=== PATIENT | male | born 1990 | race Asian ===

== ENCOUNTER 2017-04-26 15:05 | Observation (INO) | payer OTHER ==
[~2017-04-26] VITALS: Ht 188 cm; Wt 114.0 kg
[2017-04-26] MEDS ORDERED: MECLIZINE HCL 25 MG TAB PO STA (15:34)
[2017-04-26] MEDS ORDERED: SODIUM CHLORIDE 0.9% 1000ML 1,000 ML IV STA ×3 (15:34→18:19)
[2017-04-26 15:58] LABS: BASO % 0.3 %; BASO ABS # 0.03 K/uL (0-0.2); EOS % 2.3 %; HEMATOCRIT 46.7 % (42-52); HEMOGLOBIN 17.5 g/dL (14.0-18.0); IG# 0.02 K/uL (0.00-0.02); LYMPH % 40.6 %; LYMPH ABS # 3.48 K/uL (1.2-3.4); MEAN CELL VOLUME 83.4 fL (80-100); MEAN CORPUSCULAR HEMOGLOBIN 31.3 pg (25-34); MEAN CORPUSCULAR HGB CONC 37.5 g/dl (32-36); MEAN PLATELET VOLUME 12.1 fL (7.4-10.4); MONO % 5.5 %; MONO ABS # 0.47 K/uL (0.11-0.59); NEUT % 51.1 %; NEUT ABS # 4.38 K/uL (1.4-6.5); PLATELET COUNT 234 K/uL (130-400); RED CELL DISTRIBUTION WIDTH CV 12.1 % (11.5-14.5); RED CELL DISTRIBUTION WIDTH SD 36.4 fL (36.4-46.3); WHITE BLOOD COUNT 8.58 K/uL (4.8-10.8)
--- NOTE | 2017-04-26 16:09 | DIAGNOSTIC IMAGING REPORT ---
HEAD WITHOUT CONTRAST (CT) CLINICAL HISTORY: 27 years-old Male presenting with dizzy . TECHNIQUE: Multidetector CT imaging of the head was performed without the use of intravenous contrast. IV contrast: None. A dose lowering technique was used consistent with the principles of ALARA (as low as reasonably achievable). COMPARISON: None. CT DOSE (mGy.cm): The estimated cumulative dose is 614.27 mGy.cm. FINDINGS: Paid Search Manager topogram: Unremarkable. Ventricles and sulci normal in size. Brain parenchyma normal in appearance with preserved chatman-white differentiation. No mass effect or midline shift. No hemorrhage or acute territorial infarct. No extra-axial fluid collection. Paranasal sinuses and mastoid air cells clear. Calvarium intact. IMPRESSION: 1. No acute intracranial abnormality. Electronically signed by: Bhaskar Mark M.D. 04/26/2017 4:08 PM Dictated Date/Time: 04/26/2017 4:06 PM
[2017-04-26] MEDS ORDERED: INSULIN IV INFUSION PROTOCOL STA ×2 (18:12→18:19)
[2017-04-26] MEDS ORDERED: HHS GOAL RANGE 250-350 mg/dl ONE ×2 (18:15→18:30)
[2017-04-26] MEDS ORDERED: MODERATE STRESS LEVEL ONE ×2 (18:15→18:30)
[2017-04-26] MEDS ORDERED: DEXTROSE 50% 50 ML SYR IV PRN (18:30)
[2017-04-26] MEDS ORDERED: NovoLIN R BOLUS FROM BAG IV ONE (18:30)
[2017-04-26] MEDS ORDERED: GLUCAGON FOR INJ 1 MG VIAL SQ PRN (18:30)
[2017-04-26] MEDS ORDERED: ONDANSETRON INJ 2 MG/ML 2 ML VIAL IV PRN (18:30)
[2017-04-26] MEDS ORDERED: ALUMINUM/MAGNESIUM/SIMETH (MAALOX MAX) 30 ML UDC PO PRN (18:30)
[2017-04-26] MEDS ORDERED: ACETAMINOPHEN 325 MG TAB PO PRN (18:30)
[2017-04-26] MEDS ORDERED: MAGNESIUM HYDROXIDE SUSP 30 ML UDC PO PRN (18:30)
[2017-04-26] MEDS ORDERED: GLUCOSE 10 TABS/TUBE PO PRN (18:30)
[2017-04-26] MEDS ORDERED: POLYETHYLENE (MIRALAX) 17 GM PACK PO PRN (18:30)
[2017-04-26] MEDS ORDERED: GLUCOSE 40% GEL 15 GM TUBE PO PRN (18:30)
[2017-04-26] MEDS ORDERED: ZOLPIDEM TARTRATE 5 MG TAB PO PRN (18:30)
[2017-04-26] MEDS ORDERED: INSULIN REGULAR 250 UNITS in SODIUM CHLORIDE 0.9% 250ML 250 ML IV SCH (18:30)
[2017-04-26] MEDS ORDERED: LANTUS PER UNIT CHARGE SC STA (18:31)
--- NOTE | 2017-04-26 18:54 | History and Physical ---
History & Physical Date & Time of Service: Apr 26, 2017 at 18:45 Chief Complaint: Blurred Vision, Dizzy, Muscle Weakness Primary Care Physician: No Doctor, Assigned History of Present Illness Source: patient 27 y/o M who denies any past medical history. The pt over the past 6 weeks has developed polydipsia and polyuria and states that he is drinking 4l water daily. He became lightheaded this AM and presented to the the ER. Initial labs revealed a glucose of 450. He does not have a history of diabetes. No gap was present. He denies abdominal pain, CP, SOB, dysuria or fevers. 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 [employer] Smoking Status: Never Smoker Allergies Coded Allergies: No Known Allergies (Unverified , 04/26/17) Home Medications No Active Prescriptions or Reported Meds Review of Systems Constitutional: + weakness, No fever, No chills, No sweats Eyes: No worsening of vision ENT: No hearing loss, No unusual epistaxis, No nasal symptoms Respiratory: No cough, No sputum, No wheezing Cardiovascular: No chest pain Abdomen: No pain, No nausea, No vomiting Musculoskeletal: No joint pain Genitourinary - Male: + urinary frequency, No hematuria, No dysuria Neurologic: + weakness, + vertigo, No memory loss, No paralysis Psychiatric: No depression symptoms Endocrine: + fatigue, + excessive thirst, + excessive urination Hematologic / Lymphatic: No abnormal bleeding/bruising Integumentary: No rash Physical Exam Vital Signs Date Time Temp Pulse Resp B/P (MAP) Pulse Ox O2 Delivery O2 Flow Rate FiO2 04/26/17 18:00 83 20 142/99 98 Room Air 04/26/17 17:51 99 04/26/17 17:30 93 20 143/102 96 Room Air 04/26/17 17:00 99 20 134/90 95 Room Air 04/26/17 16:30 97 20 157/94 95 Room Air 04/26/17 16:07 101 20 145/105 96 Room Air 04/26/17 15:51 106 04/26/17 15:13 36.7 127 16 154/101 94 Room Air General Appearance: + pertinent finding (Overweight, young male - no distress) Head: normocephalic, atraumatic Eyes: normal inspection ENT: normal ENT inspection, pharynx normal Neck: supple, no JVD Respiratory/Chest: chest non-tender, lungs clear, normal breath sounds Cardiovascular: regular rate, rhythm, no edema, no gallop Abdomen/GI: normal bowel sounds, non tender, soft Back: normal inspection, no CVA tenderness, no muscle spasm, normal range of motion Extremities/Musculoskelatal: normal inspection, no calf tenderness, normal capillary refill, no pedal edema, normal range of motion Neurologic/Psych: frit burner II-XII nml as tested, no motor/sensory deficits, alert, oriented x 3 Skin: normal color Diagnostics Laboratory Results Results Past 24 Hours Test 04/26/17 15:45 04/26/17 17:46 04/26/17 18:29 Range/Units White Blood Count 8.58 4.8-10.8 K/uL Red Blood Count 5.60 4.7-6.1 M/uL Hemoglobin 17.5 14.0-18.0 g/dL Hematocrit 46.7 42-52 % Mean Corpuscular Volume 83.4 80-100 fL Mean Corpuscular Hemoglobin 31.3 25-34 pg Mean Corpuscular Hemoglobin Concent 37.5 32-36 g/dl Platelet Count 234 130-400 K/uL Mean Platelet Volume 12.1 7.4-10.4 fL Neutrophils (%) (Auto) 51.1 % Lymphocytes (%) (Auto) 40.6 % Monocytes (%) (Auto) 5.5 % Eosinophils (%) (Auto) 2.3 % Basophils (%) (Auto) 0.3 % Neutrophils # (Auto) 4.38 1.4-6.5 K/uL Lymphocytes # (Auto) 3.48 1.2-3.4 K/uL Monocytes # (Auto) 0.47 0.11-0.59 K/uL Eosinophils # (Auto) 0.20 0-0.5 K/uL Basophils # (Auto) 0.03 0-0.2 K/uL RDW Standard Deviation 36.4 36.4-46.3 fL RDW Coefficient of Variation 12.1 11.5-14.5 % Immature Granulocyte % (Auto) 0.2 % Immature Granulocyte # (Auto) 0.02 0.00-0.02 K/uL Impression Assessment and Plan 27 y/o M who denies any past medical history. The pt over the past 6 weeks has developed polydipsia and polyuria and states that he is drinking 4l water daily. He became lightheaded this AM and presented to the the ER. Initial labs revealed a glucose of 450. He does not have a history of diabetes. No gap was present. He denies abdominal pain, CP, SOB, dysuria or fevers. The pt is diagnosed with new-onset DM - he does not have a gap although he is considerably hyperglycemic so that insulin may be required going forward. We have place him on a drip with an initial dose of Lantus to transition to a sliding scale. Aggressive IVF and electrolyte replacement will be provided. He will be monitored on telemetry overnight. We have consulted endocrinology and DM education for AM. Full code - Heparin prophylaxis Total time for this admit including review of labs, records - discussion with pt and ER attending - 35 min Level of Care Telemetry Resuscitation Status FULL RESUSCITATION VTE Prophylaxis VTE Risk Assessment Done? Y/N: Yes Risk Level: Low Given or contraindicated: Unfractionated heparin SQ
[2017-04-26] MEDS: INSULIN ASPART 100 UNITS/ML 3 ML PEN SC SCH ×2 (19:00→21:00)
[2017-04-26] MEDS ORDERED: NSS + 20MEQ KCL 1000ML 1,000 ML IV SCH (19:00)
[2017-04-26 19:10] LABS: BLOOD UREA NITROGEN 17 mg/dl (7-18); CREATININE 1.38 mg/dl (0.60-1.40)
[2017-04-26 19:13] LABS: CALCIUM 8.9 mg/dl (8.5-10.1); CARBON DIOXIDE 20 mmol/L (21-32); POTASSIUM 5.9 mmol/L (3.5-5.1); SODIUM 130 mmol/L (136-145)
[2017-04-26 19:19] LABS: GLUCOSE 445 mg/dl (70-99)
[2017-04-26 19:34] VITALS: BP 140/92; PULSE 96; TEMP 37.2; O2SAT 98
[2017-04-26 19:35] VITALS: BMI 32.0
[2017-04-26 20:13] LABS: HEMATOCRIT 45.5 % (42-52); HEMOGLOBIN 17.5 g/dL (14.0-18.0); MEAN CELL VOLUME 85.2 fL (80-100); MEAN CORPUSCULAR HEMOGLOBIN 32.8 pg (25-34); MEAN CORPUSCULAR HGB CONC 38.5 g/dl (32-36); PLATELET COUNT 331 K/uL (130-400); WHITE BLOOD COUNT 9.52 K/uL (4.8-10.8)
[2017-04-26] MEDS ORDERED: IV FLUIDS COMPLETED PRN (20:15)
--- NOTE | 2017-04-26 22:27 | EMERGENCY ROOM VISIT NOTE ---
History Report prepared by Hazel: Mary Vaughn Under the Supervision of: Anita WillisO. First contact with patient: 15:23 Chief Complaint: DIZZY Stated Complaint: BLURRED VISION, DIZZY, MUSCLE WEAKNESS History of Present Illness The patient is a 27 year old male who presents to the Emergency Room with complains of persistent episodes of dizziness that began 2 days ago. The patient states that during his first episode, he fell to the ground noting he felt like the room was spinning. He notes that 2 days ago he began having a dry mouth and yesterday his vision became blurry. The patient states that during his recent episodes, his arms and legs have felt numb bilaterally. He notes that his episodes worsen with movement, but are relieved by laying down. The patient notes a subjective fever. He states that he has similar episodes once a year, but they are not this intense. Over the past 2 months patient has been feeling very weak and tired. He's been drinking about 4 L day and he's been urinating about 10-15 times per day as well. No history of diabetes. Pt denies headache, chest pain, shortness of breath, nausea, vomiting, diarrhea, pain with urination, and melena. Source of History: patient Onset: 2 days ago Position: other (global) Quality: other (dizziness) Timing: other (persistent) Review of Systems See HPI for pertinent positives & negatives. A total of 10 systems reviewed and were otherwise negative. Past Medical & Surgical Medical Problems: (1) Hyperglycemia (2) New onset type 2 diabetes mellitus Family History Patient reports no known family medical history. Social History Smoking Status: Never Smoker Alcohol Use: none Drug Use: none Housing Status: lives alone Occupation Status: student Current/Historical Medications No Active Prescriptions or Reported Meds Allergies Coded Allergies: No Known Allergies (Unverified , 04/26/17) Physical Exam Vital Signs Date Time Temp Pulse Resp B/P (MAP) Pulse Ox O2 Delivery O2 Flow Rate FiO2 04/26/17 18:00 83 20 142/99 98 Room Air 04/26/17 17:51 99 04/26/17 17:30 93 20 143/102 96 Room Air 04/26/17 17:00 99 20 134/90 95 Room Air 04/26/17 16:30 97 20 157/94 95 Room Air 04/26/17 16:07 101 20 145/105 96 Room Air 04/26/17 15:51 106 04/26/17 15:13 36.7 127 16 154/101 94 Room Air Physical Exam GENERAL: Sitting on the edge of the bed, alert, well appearing, well nourished, no distress, non-toxic EYE EXAM: normal conjunctiva. PERRL and EOM's grossly intact. OROPHARYNX: no exudate, no erythema, lips, buccal mucosa, and tongue normal and mucous membranes are dry NECK: supple, no nuchal rigidity, no adenopathy, non-tender LUNGS: Clear to auscultation. Normal chest wall mechanics HEART: Tachycardic, S1 normal and S2 normal ABDOMEN: abdomen soft, non-tender, normo-active bowel sounds, no masses, no rebound or guarding. BACK: Back is symmetrical on inspection and there is no deformity, no midline tenderness, no CVA tenderness. SKIN: no rashes and no bruising UPPER EXTREMITIES: Rapid sudden movements of upper extremities intact. Upper extremities are grossly normal. LOWER EXTREMITIES: No pitting edema. NEURO EXAM: Normal sensorium, cranial nerves II-XII grossly intact, normal speech, no gross weakness of arms, no gross weakness of legs. No drift. Finger to nose intact. Gross sensation intact. Medical Decision & Procedures ER Provider Diagnostic Interpretation: Radiology results as stated below per my review and the radiologist's interpretation: HEAD WITHOUT CONTRAST (CT) CLINICAL HISTORY: 27 years-old Male presenting with dizzy . TECHNIQUE: Multidetector CT imaging of the head was performed without the use of intravenous contrast. IV contrast: None. A dose lowering technique was used consistent with the principles of ALARA (as low as reasonably achievable). COMPARISON: None. CT DOSE (mGy.cm): The estimated cumulative dose is 614.27 mGy.cm. FINDINGS: Lathe Sander topogram: Unremarkable. Ventricles and sulci normal in size. Brain parenchyma normal in appearance with preserved chatman-white differentiation. No mass effect or midline shift. No hemorrhage or acute territorial infarct. No extra-axial fluid collection. Paranasal sinuses and mastoid air cells clear. Calvarium intact. IMPRESSION: 1. No acute intracranial abnormality. Electronically signed by: Bhaskar Mark M.D. 04/26/2017 4:08 PM Dictated Date/Time: 04/26/2017 4:06 PM Laboratory Results Test 04/26/17 15:45 04/26/17 17:46 RDW Standard Deviation 36.4 fL (36.4-46.3) RDW Coefficient of Variation 12.1 % (11.5-14.5) White Blood Count 8.58 K/uL (4.8-10.8) Red Blood Count 5.60 M/uL (4.7-6.1) Hemoglobin 17.5 g/dL (14.0-18.0) Hematocrit 46.7 % (42-52) Mean Corpuscular Volume 83.4 fL (80-100) Mean Corpuscular Hemoglobin 31.3 pg (25-34) Mean Corpuscular Hemoglobin Concent 37.5 g/dl (32-36) Platelet Count 234 K/uL (130-400) Mean Platelet Volume 12.1 fL (7.4-10.4) Neutrophils (%) (Auto) 51.1 % Lymphocytes (%) (Auto) 40.6 % Monocytes (%) (Auto) 5.5 % Eosinophils (%) (Auto) 2.3 % Basophils (%) (Auto) 0.3 % Neutrophils # (Auto) 4.38 K/uL (1.4-6.5) Lymphocytes # (Auto) 3.48 K/uL (1.2-3.4) Monocytes # (Auto) 0.47 K/uL (0.11-0.59) Eosinophils # (Auto) 0.20 K/uL (0-0.5) Basophils # (Auto) 0.03 K/uL (0-0.2) Immature Granulocyte % (Auto) 0.2 % Immature Granulocyte # (Auto) 0.02 K/uL (0.00-0.02) Est Creatinine Clear Calc Drug Dose 106.6 ml/min Troponin I < 0.015 ng/ml (0-0.045) Beta-Hydroxybutyric Acid 33.78 mg/dL (0.2-2.81) Laboratory results per my review. Medications Administered Medications (Trade) Dose Ordered Sig/Kelle Route Start Time Stop Time Status Last Admin Dose Admin Sodium Chloride 1,000 ml @ 999 mls/hr Q1H1M STAT IV 04/26/17 15:34 04/26/17 16:34 DC 04/26/17 15:56 999 MLS/HR Meclizine HCl (Antivert Tab) 25 mg NOW STAT PO 04/26/17 15:34 04/26/17 15:35 DC 04/26/17 15:55 25 MG Sodium Chloride 1,000 ml @ 999 mls/hr Q1H1M STAT IV 04/26/17 17:36 04/26/17 18:36 DC 04/26/17 17:40 999 MLS/HR Insulin Human Regular 250 units/ Sodium Chloride 252.5 ml @ 0 mls/hr 1830 IV 04/26/17 18:30 04/27/17 11:29 04/26/17 18:54 2.8 MLS/HR Insulin Human Regular (NovoLIN R BOLUS FROM BAG) 3 unit ONE ONCE IV 04/26/17 18:30 04/26/17 18:31 DC 04/26/17 18:30 3 UNIT Insulin Glargine (Lantus Per Unit) 20 units 1845 STAT SC 04/26/17 18:31 04/26/17 18:32 DC 04/26/17 19:02 20 UNITS ECG Indication: other (dizziness) Rate (beats per minute): 99 Rhythm: normal sinus Findings: Q waves (Anterior), no ectopy, other (normal axis, normal intervals) ED Course ED COURSE: Vital signs were reviewed and showed tachycardic. The patients medical record was reviewed The above diagnostic studies were performed and reviewed. ED treatments and interventions as stated above. 1533: The patient was evaluated in room C1. A complete history and physical examination was performed. 1534: Ordered Sodium Chloride 1000ml @ 999mls/hr IV and Antivert Tab 25mg PO. 1723: I reevaluated the patient, who states he is feeling better. 1736: Ordered Sodium Chloride 1000ml @ 999mls/hr IV. 1812: Ordered Insulin IV infusion protocol 1ea. 1815: Ordered Insulin protocol moderate stress level 1ea and Insulin protocol Hhs goal range 1ea. 1818: Ordered Insulin IV infusion protocol 1ea and Sodium Chloride 1000ml @ 999 mls/hr IV. 0: I reevaluated the patient, who states that he has been drinking 4 liters of fluid a day and urinating at least 10x a day. 2101: I reviewed the patient's case with Dr. Cash, [facility] [place]. He will evaluate the patient for further management. Medical Decision The patient is a 27 year old male who presents to the ED with complaints of dizziness. Differential diagnosis: Etiologies such as benign positional vertigo, dehydration, hypovolemia, anemia, tumor, infection, hypoglycemia, electrolyte abnormalities, cardiac sources, intracerebral event, toxicologic, neurologic, as well as others were entertained. Patient is a 19-year-old male who presents to ER for diffuse weakness associated with increased thirst, urination and intermittent dizziness for the past 2 days. Labs were obtained and show a sodium of 130, hyperkalemia at 5.9 CO2 of 20 and a gap of 14. BSG following 2 L was 445. Beta hydroxybutyric acid was 34. Based on labs and symptoms he was clearly in DKA. He is given 2 L normal saline. He was given a bolus of insulin 4 units and placed on an insulin drip. Patient was monitored closely while in the ER. I believe his symptoms are secondary to DKA and his hyperglycemia. CT head was performed initially was unremarkable. Patient was updated bedside and admitted to internal medicine. Of note his EKG did show diffuse flipped T waves but he had no chest pain or shortness of breath to suggest that this is cardiac in nature. Medication Reconcilliation Current Medication List: was personally reviewed by me Blood Pressure Screening Patient's blood pressure: Elevated blood pressure Blood pressure disposition: Referred to PCP Consults Time Called: 2101 Consulting Physician: ROSENDO Burciaga Returned Call: 2101 I reviewed the patient's case with ROSENDO Burciaga. He will evaluate the patient for further management. Impression Primary Impression: DKA (diabetic ketoacidoses) Additional Impressions: New onset type 2 diabetes mellitus Hyperkalemia Critical Care I have personally spent 35 minutes of critical care time in the direct management of this patient. This includes bedside care, interpretation of diagnostic studies, and testing, discussion with consultants, patient, and family members, and other required patient management activities. This 35 minutes is in excess of all separately billable procedures. Scribe Attestation The scribe's documentation has been prepared under my direction and personally reviewed by me in its entirety. I confirm that the note above accurately reflects all work, treatment, procedures, and medical decision making performed by me. Departure Information Dispostion Being Evaluated By Hospitalist Prescriptions No Active Prescriptions or Reported Meds Referrals No Doctor, Assigned (PCP) Forms HOME CARE DOCUMENTATION FORM, IMPORTANT VISIT INFORMATION Patient Instructions [facility] Problem Qualifiers Primary Impression: DKA (diabetic ketoacidoses) Diabetes mellitus type: other specified (including CECELIA) Diabetes mellitus complication detail: without coma Qualified Codes: E13.10 - Other specified diabetes mellitus with ketoacidosis without coma
[2017-04-26 22:43] LABS: CALCIUM 9.1 mg/dl (8.5-10.1); CREATININE 1.12 mg/dl (0.60-1.40)
[2017-04-26 22:48] LABS: POTASSIUM 3.7 mmol/L (3.5-5.1)
[2017-04-26 23:19] LABS: INR 0.9 (0.9-1.1)
[2017-04-26 23:59] VITALS: BP 148/81; PULSE 105; TEMP 36.4; O2SAT 95
[2017-04-27] VITALS (8 sets, daily range): BP systolic 114–141; BP diastolic 78–96; PULSE 79–90; TEMP 36.4–37; O2SAT 95–99; Ht 188 cm; Wt 114.0 kg
[2017-04-27 01:28] LABS: CALCIUM 8.3 mg/dl (8.5-10.1); CREATININE 1.05 mg/dl (0.60-1.40)
[2017-04-27 02:23] LABS: POTASSIUM 3.3 mmol/L (3.5-5.1)
[2017-04-27] MEDS ORDERED: POTASSIUM CHLORIDE INJ 40 MEQ in SODIUM CHLORIDE 0.9% 1000ML 1,000 ML IV SCH (03:00)
[2017-04-27 03:21] LABS: PHOSPHORUS 1.9 mg/dl (2.5-4.9)
[2017-04-27] MEDS ORDERED: POTASSIUM PHOS 3 MMOL/1 ML INFUSION IV STA (05:52)
[2017-04-27] MEDS ORDERED: POTASSIUM PHOSPHATE INJ 15 MMOL in SODIUM CHLORIDE 0.9% 250ML 250 ML IV ONE (06:00)
[2017-04-27] MEDS ORDERED: D5W AND 1/2NSS + 40MEQ KCL 1,000 ML IV SCH (06:00)
[2017-04-27] MEDS: HEPARIN SOD 5000 UNIT/0.5 ML CARP SQ SCH ×3 (06:27→20:58)
[2017-04-27 06:52] LABS: CALCIUM 7.6 mg/dl (8.5-10.1); CREATININE 0.98 mg/dl (0.60-1.40); PHOSPHORUS 2.4 mg/dl (2.5-4.9); POTASSIUM 3.2 mmol/L (3.5-5.1)
[2017-04-27] MEDS: INSULIN ASPART 100 UNITS/ML 3 ML PEN SC SCH ×4 (08:10→20:57)
[2017-04-27] MEDS ORDERED: PHARMACY GLYCEMIC MGMT CONSULT PRN (08:56)
[2017-04-27] MEDS ORDERED: INSULIN PROTOCOL GOAL RANGE ONE (09:00)
--- NOTE | 2017-04-27 09:59 | Pharmacy Progress Note ---
Glycemic Control Intl Consult Date of Service Apr 27, 2017. Scope Glycemic Pharmacist consulted by Dr Ochoa on 04/27/17 for glycemic control and to write orders per [facility] inpatient glycemic control protocol Objective Weight (Kilograms): 113.900 Accuchecks BSG (last 24hrs): Test 04/26/17 17:46 04/26/17 18:06 04/26/17 19:41 04/26/17 20:01 Random Glucose 445 mg/dl (70-99) Bedside Glucose 452 mg/dl (70-99) 334 mg/dl (70-99) 302 mg/dl (70-99) Test 04/26/17 20:35 04/26/17 21:30 04/26/17 22:29 04/27/17 00:38 Bedside Glucose 308 mg/dl (70-99) 290 mg/dl (70-99) 273 mg/dl (70-99) Random Glucose 298 mg/dl (70-99) 275 mg/dl (70-99) Test 04/27/17 00:43 04/27/17 02:34 04/27/17 03:46 04/27/17 04:38 Bedside Glucose 283 mg/dl (70-99) 244 mg/dl (70-99) 245 mg/dl (70-99) 252 mg/dl (70-99) Test 04/27/17 05:46 04/27/17 05:58 04/27/17 06:21 04/27/17 07:26 Bedside Glucose 242 mg/dl (70-99) 236 mg/dl (70-99) 247 mg/dl (70-99) Random Glucose 257 mg/dl (70-99) Laboratory Data (last 24hrs) Test 04/26/17 15:45 04/26/17 17:46 04/26/17 19:18 04/26/17 21:30 White Blood Count 8.58 K/uL 9.52 K/uL Red Blood Count 5.60 M/uL Hemoglobin 17.5 g/dL Hematocrit 46.7 % Mean Corpuscular Volume 83.4 fL Mean Corpuscular Hemoglobin 31.3 pg Mean Corpuscular Hemoglobin Concent 37.5 g/dl Platelet Count 234 K/uL Mean Platelet Volume 12.1 fL Neutrophils (%) (Auto) 51.1 % Lymphocytes (%) (Auto) 40.6 % Monocytes (%) (Auto) 5.5 % Eosinophils (%) (Auto) 2.3 % Basophils (%) (Auto) 0.3 % Neutrophils # (Auto) 4.38 K/uL Lymphocytes # (Auto) 3.48 K/uL Monocytes # (Auto) 0.47 K/uL Eosinophils # (Auto) 0.20 K/uL Basophils # (Auto) 0.03 K/uL Anion Gap 14.0 mmol/L 15.0 mmol/L BUN/Creatinine Ratio 12.0 13.5 Blood Urea Nitrogen 17 mg/dl 15 mg/dl Creatinine 1.38 mg/dl 1.12 mg/dl Potassium Level 5.9 mmol/L 3.7 mmol/L Sodium Level 130 mmol/L 137 mmol/L Test 04/27/17 00:38 04/27/17 01:45 04/27/17 05:58 Anion Gap 10.0 mmol/L 12.0 mmol/L BUN/Creatinine Ratio 11.2 11.0 Blood Urea Nitrogen 12 mg/dl 11 mg/dl Creatinine 1.05 mg/dl 0.98 mg/dl Potassium Level mmol/L 3.3 mmol/L 3.2 mmol/L Sodium Level 133 mmol/L 133 mmol/L Recent Pertinent Medications Outpatient Anti-diabetic Regimen: * N/A The patient is currently receiving: * Basal insulin: Lantus 20 units X 1 last night at 1830 * Insulin drip per protocol (Goal range 250-350) Assessment & Plan ASSESSMENT: * 27 yo diabetic M admitted with new onset diabetes last evening - given Lantus X 1 and initiated on insulin drip * Patient has had symptoms consistent with diabetes for the past 6 weeks * Insulin drip will be continued throughout the better part of today but I will start transition this morning * Give one more Lantus dose this AM, tighten goal range on drip to increase drip rates and remove dextrose from IV fluids * Will continue to make adjustments through the evening as necessary to help facilitate transition PLAN FOR INPATIENT GLYCEMIC CONTROL: * Continue IV insulin infusion per protocol * Goal Range 140 - 180 mg/dl * In the critical care setting, continuous IV insulin infusion has been shown to be the best method for achieving glycemic targets. * Basal insulin with LANTUS 40 units SQ X 1 * Re-dose tonight based on BSG response * Correctional Insulin with NOVOLOG per scale ACHS + 00,04 checks (once transitioned off insulin drip) * Goal Range: Low 140 mg/dL - High 180 mg/dL * Correction Factor: 15 mg/dL/unit * Nutritional / Prandial insulin per carb ratio of 1 unit per 5 grams CHO consumed * Please note that the plan above was derived based on current level of insulin resistance and hospital stress. These recommendations are appropriate for inpatient admission only. Plan of care upon discharge will need to be reassessed to avoid potential outpatient hypo/hyperglycemia. Thank you.
[2017-04-27] MEDS: POTASSIUM CHLORIDE INJ 40 MEQ in SODIUM CHLORIDE 0.9% 1000ML 1,000 ML IV SCH ×2 (10:00→20:54)
[2017-04-27] MEDS ORDERED: INSULIN GLARGINE SOLOSTAR 100 UNITS/ML 3 ML PEN SC ONE ×2 (10:00→12:45)
[2017-04-27 10:43] LABS: ISTAT IONIZED CALCIUM 1.09 mmol/l (1.12-1.32); ISTAT POTASSIUM 4.9 mEq/L (3.3-5.0)
[2017-04-27] MEDS ORDERED: INSULIN REGULAR 250 UNITS in SODIUM CHLORIDE 0.9% 250ML 250 ML IV SCH (11:30)
[2017-04-27 13:29] LABS: POTASSIUM 3.8 mmol/L (3.5-5.1)
[2017-04-27 13:30] LABS: CALCIUM 7.5 mg/dl (8.5-10.1); CREATININE 0.95 mg/dl (0.60-1.40); PHOSPHORUS 1.7 mg/dl (2.5-4.9)
--- NOTE | 2017-04-27 15:29 | Progress Note ---
Subjective Date of Service: Apr 27, 2017. Subjective Pt evaluation today including: conversation w/ patient, physical exam, lab review, review of inpatient medication list Pain: no pain PO Intake: adequate Voiding: no voiding problems patient doing well, only complaint is blurry vision eating well, no pain reviewed labs, glucose improving then started to climb again pharmacy consulted for insulin orders anion gap improved potassium now slightly low discussed his history, no family h/o diabetes he has been experiencing symptoms of polydipsia and polyuria for 2 months, getting worse some weight loss, no polyphagia Problem List Medical Problems: (1) DKA (diabetic ketoacidoses) Status: Acute (2) Hyperkalemia Status: Acute Review of Systems Eyes: + problem reported (blurry vision, no double vision, no loss of vision) All Other Systems: Reviewed and Negative Medications Current Inpatient Medications Medications (Trade) Dose Ordered Sig/Kelle Route Start Time Stop Time Status Last Admin Dose Admin Insulin Aspart (novoLOG ASPART) SLIDING SCALE [facility] [place] 04/26/17 19:00 04/27/17 18:30 04/27/17 11:55 5 UNITS Insulin Human Regular 250 units/ Sodium Chloride 252.5 ml @ 0 mls/hr 1830 IV 04/26/17 18:30 04/27/17 18:29 04/26/17 18:54 2.8 MLS/HR Glucose (Glucose 40% Gel) UD PRN PO 04/26/17 18:30 05/26/17 18:29 Glucose (Glucose Chew Tab) 1 tabs UD PRN PO 04/26/17 18:30 05/26/17 18:29 Dextrose (Dextrose 50% 50ML Syringe) 50 ml UD PRN IV 04/26/17 18:30 05/26/17 18:29 Glucagon (Glucagon Inj) 1 mg UD PRN SQ 04/26/17 18:30 05/26/17 18:29 Heparin Sodium (Porcine) (Heparin Sq 5000 Unit/0.5ml) 5,000 unit Q8 SQ 04/27/17 06:00 05/27/17 05:59 04/27/17 06:27 5,000 UNIT Acetaminophen (Tylenol Tab) 650 mg Q4H PRN PO 04/26/17 18:30 05/26/17 18:29 Al Hydrox/Mg Hydrox/Simethicone (Maalox Max Susp) 15 ml Q4H PRN PO 04/26/17 18:30 05/26/17 18:29 Magnesium Hydroxide (Milk Of Magnesia Susp) 30 ml Q12H PRN PO 04/26/17 18:30 05/26/17 18:29 Zolpidem Tartrate (Ambien Tab) 5 mg HSZ PRN PO 04/26/17 18:30 05/26/17 18:29 Ondansetron HCl (Zofran Inj) 4 mg Q6H PRN IV 04/26/17 18:30 05/26/17 18:29 Polyethylene (Miralax Powder Packet) 17 gm DAILY PRN PO 04/26/17 18:30 05/26/17 18:29 Miscellaneous (Iv Fluids Completed) 1 ea PRN PRN N/A 04/26/17 20:15 04/26/18 20:14 Miscellaneous Information (Consult Glycemic Management Pharmacy) 1 ea UD PRN N/A 04/27/17 08:56 05/27/17 08:55 Potassium Chloride 40 meq/ Sodium Chloride 1,020 ml @ 100 mls/hr [id number] IV 04/27/17 10:00 05/27/17 09:59 04/27/17 10:00 100 MLS/HR Miscellaneous Information (Dc Iv Insulin Infusion) 1 ea TODAY@1830 N/A 04/27/17 18:30 04/27/17 18:31 Insulin Glargine (Lantus Solostar Pen) SEE PROTOCOL BID [place] 04/27/17 21:00 05/27/17 20:59 Insulin Aspart (novoLOG ASPART) SLIDING SCALE [facility] [place] 04/27/17 21:00 05/27/17 20:59 Insulin Aspart (novoLOG ASPART) SLIDING SCALE 0000,0400 [place] 04/28/17 00:00 05/28/17 00:00 Objective Vital Signs Date Time Temp Pulse Resp B/P (MAP) Pulse Ox O2 Delivery O2 Flow Rate FiO2 04/27/17 12:00 36.7 90 20 141/96 (111) 95 Room Air 04/27/17 12:00 98 Room Air 04/27/17 10:46 36.7 90 20 141/96 (111) 95 Room Air 04/27/17 08:00 36.4 80 18 135/91 (106) 96 Room Air 04/27/17 08:00 98 Room Air 04/27/17 04:50 36.4 79 19 140/90 (107) 96 Room Air 04/27/17 04:00 Room Air 04/27/17 00:00 Room Air 04/26/17 23:59 36.4 105 18 148/81 (103) 95 Room Air 04/26/17 19:35 Room Air 04/26/17 19:34 37.2 96 16 140/92 (108) 98 Room Air 04/26/17 19:34 98 Room Air 04/26/17 19:05 96 20 148/105 95 Room Air 04/26/17 18:00 83 20 142/99 98 Room Air 04/26/17 17:51 99 04/26/17 17:30 93 20 143/102 96 Room Air 04/26/17 17:00 99 20 134/90 95 Room Air 04/26/17 16:30 97 20 157/94 95 Room Air 04/26/17 16:07 101 20 145/105 96 Room Air 04/26/17 15:51 106 Physical Exam General Appearance: WD/WN, no apparent distress Eyes: normal inspection, PERRL, EOMI, sclerae normal ENT: normal ENT inspection, hearing grossly normal, pharynx normal Neck: supple, no adenopathy, no JVD, trachea midline Respiratory/Chest: chest non-tender, lungs clear, normal breath sounds, no respiratory distress, no accessory muscle use Cardiovascular: regular rate, rhythm, no edema, no gallop, no JVD, no murmur Abdomen: normal bowel sounds, non tender, soft, no organomegaly Extremities: normal range of motion, non-tender, normal inspection, no pedal edema, no calf tenderness, pelvis stable 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, no motor/sensory deficits, alert, normal mood/affect, oriented x 3 Skin: normal color, warm/dry, no rash Lymphatic: no adenopathy Laboratory Results Last 24 Hours Test 04/26/17 15:45 04/26/17 17:46 04/26/17 17:55 04/26/17 18:06 White Blood Count 8.58 K/uL Red Blood Count 5.60 M/uL Hemoglobin 17.5 g/dL Hematocrit 46.7 % Mean Corpuscular Volume 83.4 fL Mean Corpuscular Hemoglobin 31.3 pg Mean Corpuscular Hemoglobin Concent 37.5 g/dl Platelet Count 234 K/uL Mean Platelet Volume 12.1 fL Neutrophils (%) (Auto) 51.1 % Lymphocytes (%) (Auto) 40.6 % Monocytes (%) (Auto) 5.5 % Eosinophils (%) (Auto) 2.3 % Basophils (%) (Auto) 0.3 % Neutrophils # (Auto) 4.38 K/uL Lymphocytes # (Auto) 3.48 K/uL Monocytes # (Auto) 0.47 K/uL Eosinophils # (Auto) 0.20 K/uL Basophils # (Auto) 0.03 K/uL RDW Standard Deviation 36.4 fL RDW Coefficient of Variation 12.1 % Immature Granulocyte % (Auto) 0.2 % Immature Granulocyte # (Auto) 0.02 K/uL Prothrombin Time 9.3 SECONDS Prothromb Time International Ratio 0.9 Sodium Level 130 mmol/L Potassium Level 5.9 mmol/L Chloride Level 96 mmol/L Carbon Dioxide Level 20 mmol/L Anion Gap 14.0 mmol/L 13.0 mmol/L Blood Urea Nitrogen 17 mg/dl Creatinine 1.38 mg/dl Est Creatinine Clear Calc Drug Dose 106.6 ml/min Estimated GFR () 80.1 Estimated GFR (Non- 69.1 BUN/Creatinine Ratio 12.0 Random Glucose 445 mg/dl Calcium Level 8.9 mg/dl Troponin I < 0.015 ng/ml Beta-Hydroxybutyric Acid 33.78 mg/dL Bedside Hemoglobin 15.0 g/dl Bedside Hematocrit 44 % Bedside Sodium 131 mEq/L Bedside Potassium 4.9 mEq/L Bedside Chloride 97 mEq/L Bedside Total CO2 20 mEq/l Bedside Blood Urea Nitrogen 22 mg/dl Bedside Creatinine 1.0 mg/dl Bedside Glucose (other) 451 mg/dl Bedside Ionized Calcium ([place]) 1.09 mmol/l Bedside Glucose 452 mg/dl Test 04/26/17 19:18 04/26/17 19:41 04/26/17 20:01 04/26/17 20:35 White Blood Count 9.52 K/uL Red Blood Count 5.34 M/uL Hemoglobin 17.5 g/dL Hematocrit 45.5 % Mean Corpuscular Volume 85.2 fL Mean Corpuscular Hemoglobin 32.8 pg Mean Corpuscular Hemoglobin Concent 38.5 g/dl Platelet Count 331 K/uL Bedside Glucose 334 mg/dl 302 mg/dl 308 mg/dl Test 04/26/17 21:30 04/26/17 22:29 04/27/17 00:38 04/27/17 00:43 Sodium Level 137 mmol/L 133 mmol/L Potassium Level 3.7 mmol/L mmol/L Chloride Level 101 mmol/L 103 mmol/L Carbon Dioxide Level 21 mmol/L 20 mmol/L Anion Gap 15.0 mmol/L 10.0 mmol/L Blood Urea Nitrogen 15 mg/dl 12 mg/dl Creatinine 1.12 mg/dl 1.05 mg/dl Est Creatinine Clear Calc Drug Dose 131.3 ml/min 140.1 ml/min Estimated GFR () 103.1 111.4 Estimated GFR (Non- 88.9 96.1 BUN/Creatinine Ratio 13.5 11.2 Bedside Glucose 290 mg/dl 273 mg/dl 283 mg/dl Random Glucose 298 mg/dl 275 mg/dl Calcium Level 9.1 mg/dl 8.3 mg/dl Phosphorus Level 2.0 mg/dl Magnesium Level 2.3 mg/dl Test 04/27/17 01:45 04/27/17 02:34 04/27/17 03:46 04/27/17 04:38 Potassium Level 3.3 mmol/L Phosphorus Level 1.9 mg/dl Magnesium Level 2.2 mg/dl Bedside Glucose 244 mg/dl 245 mg/dl 252 mg/dl Test 04/27/17 05:46 04/27/17 05:58 04/27/17 06:21 04/27/17 07:26 Bedside Glucose 242 mg/dl 236 mg/dl 247 mg/dl Sodium Level 133 mmol/L Potassium Level 3.2 mmol/L Chloride Level 102 mmol/L Carbon Dioxide Level 25 mmol/L Anion Gap 12.0 mmol/L Blood Urea Nitrogen 11 mg/dl Creatinine 0.98 mg/dl Est Creatinine Clear Calc Drug Dose 150.6 ml/min Estimated GFR () 121.1 Estimated GFR (Non- 104.5 BUN/Creatinine Ratio 11.0 Random Glucose 257 mg/dl Calcium Level 7.6 mg/dl Phosphorus Level 2.4 mg/dl Magnesium Level 2.4 mg/dl Test 04/27/17 08:29 04/27/17 09:25 04/27/17 10:27 04/27/17 11:24 Bedside Glucose 291 mg/dl 375 mg/dl 343 mg/dl 323 mg/dl Test 04/27/17 12:00 04/27/17 12:20 04/27/17 12:41 Sodium Level 131 mmol/L Potassium Level 3.8 mmol/L Chloride Level 100 mmol/L Carbon Dioxide Level 23 mmol/L Anion Gap 8.0 mmol/L Blood Urea Nitrogen 10 mg/dl Creatinine 0.95 mg/dl Est Creatinine Clear Calc Drug Dose 155.4 ml/min Estimated GFR () 125.8 Estimated GFR (Non- 108.5 BUN/Creatinine Ratio 10.0 Random Glucose 311 mg/dl Calcium Level 7.5 mg/dl Phosphorus Level 1.7 mg/dl Magnesium Level 2.3 mg/dl Beta-Hydroxybutyric Acid 15.53 mg/dL Bedside Glucose 352 mg/dl Assessment and Plan 27 yo male with new onset diabetes, mild DKA, hyperglycemia - New onset diabetes, hyperglycemia, mild DKA acidosis was minimal and now resolved, AG 12 continue insulin drip, pharmacy consulted for dosing since sugars went back up Na improving, K is now low but on 40KCl in fluids elementary educator visited with patient likely convert to basal bolus tomorrow d/c home on Sunday at the earliest - Blurry vision: DEVORA, visual acuity intact says that vision getting less blurry recommend following up with eye doctor if vision doesn't improve with glucose control
[2017-04-27] MEDS ORDERED: DC IV INSULIN INFUSION SCH (18:30)
[2017-04-27] MEDS ORDERED: INSULIN GLARGINE SOLOSTAR 100 UNITS/ML 3 ML PEN SC SCH (20:00)
[2017-04-27] MEDS: INSULIN GLARGINE SOLOSTAR 100 UNITS/ML 3 ML PEN SC SCH (20:58)
[2017-04-28] VITALS (8 sets, daily range): BP systolic 127–155; BP diastolic 61–106; PULSE 64–86; TEMP 36.4–37.2; O2SAT 95–99
[2017-04-28] MEDS: INSULIN ASPART 100 UNITS/ML 3 ML PEN SC SCH ×6 (00:05→21:55)
[2017-04-28] MEDS: HEPARIN SOD 5000 UNIT/0.5 ML CARP SQ SCH ×3 (05:57→21:48)
[2017-04-28] MEDS: POTASSIUM CHLORIDE INJ 40 MEQ in SODIUM CHLORIDE 0.9% 1000ML 1,000 ML IV SCH (06:35)
[2017-04-28 07:47] LABS: HEMOGLOBIN A1C 13.2 % (4.5-5.6)
[2017-04-28] MEDS: INSULIN GLARGINE SOLOSTAR 100 UNITS/ML 3 ML PEN SC SCH ×2 (08:28→21:55)
[2017-04-28] MEDS ORDERED: NURSING VERBAL MED ORDER ONE (13:00)
[2017-04-28] MEDS ORDERED: INFLUENZA VIRUS QUAD VACCINE 0.5 ML SYR IM. ONE (13:00)
[2017-04-28] MEDS ORDERED: PNEUMOCOCCAL ADMINISTRATION CHARGE ONE (13:00)
[2017-04-28] MEDS ORDERED: PNEUMOCOCCAL POLYSACCHARIDES 25 MCG/0.5 ML VIAL/SYR IM. ONE (13:00)
[2017-04-28] MEDS ORDERED: INFLUENZA ADMINISTRATION CHARGE ONE (13:00)
--- NOTE | 2017-04-28 13:50 | Progress Note ---
Subjective Date of Service: Apr 28, 2017. Subjective Pt evaluation today including: conversation w/ patient, physical exam, lab review, review of inpatient medication list Pain: no pain PO Intake: adequate Voiding: no voiding problems patient feeling well, no complaints eating well, urinating normally sugars in high 100's and low 200's now on Lantus 60 units BID with Novolog coverage with meals pharmacy working on dosing, appreciate their help transfer to medical floor Problem List Medical Problems: (1) DKA (diabetic ketoacidoses) Status: Acute (2) Hyperkalemia Status: Acute Review of Systems All Other Systems: Reviewed and Negative Medications Current Inpatient Medications Medications (Trade) Dose Ordered Sig/Kelle Route Start Time Stop Time Status Last Admin Dose Admin Glucose (Glucose 40% Gel) UD PRN PO 04/26/17 18:30 05/26/17 18:29 Glucose (Glucose Chew Tab) 1 tabs UD PRN PO 04/26/17 18:30 05/26/17 18:29 Dextrose (Dextrose 50% 50ML Syringe) 50 ml UD PRN IV 04/26/17 18:30 05/26/17 18:29 Glucagon (Glucagon Inj) 1 mg UD PRN SQ 04/26/17 18:30 05/26/17 18:29 Heparin Sodium (Porcine) (Heparin Sq 5000 Unit/0.5ml) 5,000 unit Q8 SQ 04/27/17 06:00 05/27/17 05:59 04/27/17 06:27 5,000 UNIT Acetaminophen (Tylenol Tab) 650 mg Q4H PRN PO 04/26/17 18:30 05/26/17 18:29 Al Hydrox/Mg Hydrox/Simethicone (Maalox Max Susp) 15 ml Q4H PRN PO 04/26/17 18:30 05/26/17 18:29 Magnesium Hydroxide (Milk Of Magnesia Susp) 30 ml Q12H PRN PO 04/26/17 18:30 05/26/17 18:29 Zolpidem Tartrate (Ambien Tab) 5 mg HSZ PRN PO 04/26/17 18:30 05/26/17 18:29 Ondansetron HCl (Zofran Inj) 4 mg Q6H PRN IV 04/26/17 18:30 05/26/17 18:29 Polyethylene (Miralax Powder Packet) 17 gm DAILY PRN PO 04/26/17 18:30 05/26/17 18:29 Miscellaneous (Iv Fluids Completed) 1 ea PRN PRN N/A 04/26/17 20:15 04/26/18 20:14 Miscellaneous Information (Consult Glycemic Management Pharmacy) 1 ea UD PRN N/A 04/27/17 08:56 05/27/17 08:55 Potassium Chloride 40 meq/ Sodium Chloride 1,020 ml @ 100 mls/hr [id number] IV 04/27/17 10:00 04/28/17 16:30 04/28/17 06:35 100 MLS/HR Insulin Glargine (Lantus Solostar Pen) SEE PROTOCOL BID [place] 04/27/17 21:00 05/27/17 20:59 04/28/17 08:28 60 UNITS Insulin Aspart (novoLOG ASPART) SLIDING SCALE [facility] [place] 04/27/17 21:00 05/27/17 20:59 04/28/17 12:12 12 UNITS Insulin Aspart (novoLOG ASPART) SLIDING SCALE 0000,0400 [place] 04/28/17 00:00 05/28/17 00:00 04/28/17 04:47 3 UNITS Objective Vital Signs Date Time Temp Pulse Resp B/P (MAP) Pulse Ox O2 Delivery O2 Flow Rate FiO2 04/28/17 12:10 37.2 86 20 137/106 (116) 96 Room Air 04/28/17 12:00 Room Air 04/28/17 08:00 Room Air 04/28/17 07:50 36.6 68 18 128/69 (88) 98 Room Air 04/28/17 04:22 36.7 64 17 127/61 (83) 99 Room Air 04/28/17 04:00 Room Air 04/28/17 00:10 36.4 72 17 136/82 (100) 97 Room Air 04/27/17 23:59 Room Air 04/27/17 20:00 98 Room Air 04/27/17 19:30 36.8 79 16 114/78 (90) 99 04/27/17 16:00 99 Room Air 04/27/17 15:36 37.0 89 18 120/83 (95) 99 Physical Exam General Appearance: WD/WN, no apparent distress Eyes: normal inspection, EOMI, sclerae normal ENT: normal ENT inspection, hearing grossly normal, pharynx normal Neck: supple, no adenopathy, no JVD, trachea midline Respiratory/Chest: chest non-tender, lungs clear, normal breath sounds, no respiratory distress, no accessory muscle use Cardiovascular: regular rate, rhythm, no edema, no gallop, no JVD, no murmur Abdomen: normal bowel sounds, non tender, soft, no organomegaly Extremities: normal range of motion, non-tender, normal inspection, no pedal edema, no calf tenderness 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 as 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, no motor/sensory deficits, alert, normal mood/affect, oriented x 3 Skin: normal color, warm/dry, no rash Laboratory Results Last 24 Hours Test 04/27/17 14:25 04/27/17 15:30 04/27/17 16:34 04/27/17 17:32 Bedside Glucose 283 mg/dl 224 mg/dl 220 mg/dl 236 mg/dl Test 04/27/17 20:26 04/28/17 00:01 04/28/17 04:21 04/28/17 07:21 Bedside Glucose 202 mg/dl 208 mg/dl 211 mg/dl 185 mg/dl Test 04/28/17 11:13 Bedside Glucose 222 mg/dl Assessment and Plan 27 yo male with new onset diabetes, mild DKA, hyperglycemia - New onset diabetes, hyperglycemia, mild DKA DKA resolved completely transitioned off of insulin drip, on Lantus 60 units BID with Novolog coverage electrolytes stable, check renal panel in the AM certified breastfeeding educator visited with patient nurse education and instructing patient on administering insulin by himself hopeful for d/c tomorrow - Blurry vision: DEVORA, visual acuity intact vision better today recommend following up with eye doctor if vision doesn't improve with glucose control transfer to medical floor today
--- NOTE | 2017-04-28 14:35 | Pharmacy Progress Note ---
Pharmacy Glycemic Short Note 2 Date of Service Apr 28, 2017. OUTPATIENT ANTIDIABETIC REGIMEN: * N/A ASSESSMENT: * 27 yo diabetic M admitted with new onset diabetes 04/26 and initiated on insulin drip per protocol * Over the past 24 hours pt was transitioned off the insulin drip with very aggressive basal/bolus regimen * Pt received a total of 86 units of basal insulin yesterday + insulin drip + meal time Novolog * Fasting BSG 185 mg/dL this AM * For now I will continue to be aggressive with one more large dose of Lantus followed by wt based scale BID depending on BSG trend * Novolog will remain at a stress of 3 PLAN FOR INPATIENT GLYCEMIC CONTROL: * Basal insulin with LANTUS 60 units X 1 this AM * Re-dose tonight based on BSG response 10-30 units * Correctional Insulin with NOVOLOG per scale ACHS + 00,04 checks * Goal Range: Low 120 mg/dL - High 160 mg/dL * Correction Factor: 15 mg/dL/unit * Nutritional / Prandial insulin per carb ratio of 1 unit per 5 grams CHO consumed PLAN FOR DISCHARGE: * Given that patient is a newly diagnosed diabetic his initial requirements off insulin drip are much higher than what they will be in the weeks ahead after discharge * Final plan TBD tomorrow with Dr. Ochoa * Please note that the plan above was derived based on current level of insulin resistance and hospital stress. These recommendations are appropriate for inpatient admission only. Plan of care upon discharge will need to be reassessed to avoid potential outpatient hypo/hyperglycemia. Thank you.
[2017-04-29] MEDS: INSULIN ASPART 100 UNITS/ML 3 ML PEN SC SCH ×4 (04:16→12:19)
[2017-04-29] MEDS: HEPARIN SOD 5000 UNIT/0.5 ML CARP SQ SCH (06:00)
[2017-04-29 06:55] LABS: CREATININE 0.75 mg/dl (0.60-1.40)
[2017-04-29 06:56] LABS: POTASSIUM 3.1 mmol/L (3.5-5.1)
[2017-04-29 06:57] LABS: CALCIUM 8.7 mg/dl (8.5-10.1); PHOSPHORUS 2.8 mg/dl (2.5-4.9)
[2017-04-29 07:38] VITALS: BP 122/77; PULSE 69; TEMP 36.7; O2SAT 96
[2017-04-29] MEDS ORDERED: POTASSIUM CHLORIDE 20 MEQ TABCR PO STA (07:45)
[2017-04-29] MEDS ORDERED: INSULIN GLARGINE SOLOSTAR 100 UNITS/ML 3 ML PEN SC SCH (09:00)
--- NOTE | 2017-04-29 10:29 | Pharmacy Progress Note ---
Pharmacy Glycemic Short Note 2 Date of Service Apr 29, 2017. OUTPATIENT ANTIDIABETIC REGIMEN: * N/A ASSESSMENT: * Pt has received a total of 118 units of insulin over the past 24 hours * Fasting BSG = 203 * His requirements are much higher than weight-based dosing but this is not surprising for a newly diagnosed diabetic * Plan for d/c home today - discharge recommendations below discussed with Dr. Ochoa PLAN FOR INPATIENT GLYCEMIC CONTROL: * Basal insulin with LANTUS 30 units BID * Correctional Insulin with NOVOLOG per scale ACHS + 00,04 checks * Goal Range: Low 120 mg/dL - High 160 mg/dL * Correction Factor: 15 mg/dL/unit * Nutritional / Prandial insulin per carb ratio of 1 unit per 5 grams CHO consumed PLAN FOR DISCHARGE: * Initiate Metformin 500 mg PO daily X 1 week * If tolerated - increase to 500 mg twice daily with meals - further dose increases should be made in increments of 500 mg weekly up to 2000 mg/day, given in divided doses * Initiate Lantus 40 units daily * This dose is much lower than what patient is receiving inpatient; however, requirements will start to change attendant the next few weeks with lifestyle changes /metformin use/exercise * Check BSGs with meter provided from CDE every morning and prior to meals - keep a log and take to your next follow up appointment with PCP * Please note that the plan above was derived based on current level of insulin resistance and hospital stress. These recommendations are appropriate for inpatient admission only. Plan of care upon discharge will need to be reassessed to avoid potential outpatient hypo/hyperglycemia. Thank you.
[2017-04-29] MEDS ORDERED: GLC500 PO (11:43)
[2017-04-29] MEDS ORDERED: INSDGIPEN SC (11:43)
[2017-04-29] MEDS ORDERED: METFORMIN HCL 500 MG TAB PO ONE (11:45)
--- NOTE | 2017-04-29 11:54 | Discharge Instructions ---
Discharge Instructions Date of Service Apr 29, 2017. Admission Reason for Admission: Hyperglycemia, New Onset Diabetes Mellitus Discharge Discharge Diagnosis / Problem: Diabetes Mellitus, new onset Discharge Goals Goal(s): Improve function, Improve disease control Activity Recommendations Activity Limitations: resume your previous activity . Instructions / Follow-Up Instructions / Follow-Up Medications: - LANTUS: 35 units every evening, first dose should be given tonight - METFORMIN: 500mg every morning, first dose is tomorrow, can cause some diarrhea but should go away as your body adjusts Diabetes Mellitus: unclear exactly what type, as we discussed, it could be type I or II, you need to follow up with endocrinology and we will help make that arrangement Lantus is 35 units every evening Metformin is 500mg every morning, dose will likely be increased check your sugars in the morning when you wake up, before lunch and at bedtime for the next week until you are seen by [facility] if your sugars are above 200 consistently, then increase the Lantus to 40 units you have required a lot of insulin initially because you were under stress, body was so deprived of insulin your insulin requirements will go down over time as your body adjusts to treatment please follow the dietary instructions given by our educator [facility] is closed today and tomorrow for the holiday please call them Sunday to schedule an appointment for this week as soon as possible, as far as your prescriptions, I have given you written scripts, you can take them to [facility] we will give you your Lantus Pen which has two more 35 unit doses left please request glucometer test strips at the pharmacy at [facility], they are 100 for $10 FOLLOW UP - [facility], call Sunday AM to make appointment for THIS WEEK , first they have available - [facility], our nurse navigator will contact you for this appointment Current Hospital Diet Patient's current hospital diet: Diabetes Type 2 Diet Discharge Diet Recommended Diet: Diabetes Type 2 Diet Pending Studies Studies pending at discharge: no Laboratory Results Hemoglobin A1c Test 04/27/17 12:41 Range/Units Estimated Average Glucose 332 mg/dl Hemoglobin A1c 13.2 H 4.5-5.6 % Medical Emergencies . Who to Call and When: Medical Emergencies: If at any time you feel your situation is an emergency, please call 911 immediately. . Non-Emergent Contact Non-Emergency issues call your: Primary Care Provider Call Non-Emergent contact if: you have any medication questions . . "Provider Documentation" section prepared by Gurjit Ochoa. . VTE Core Measure Inpt VTE Proph given/why not?: Unfractionated heparin SQ [place] Drug Monitoring Program Search Results: no issues identified
[2017-04-29 12:00] VITALS: BP 122/77; PULSE 69; TEMP 36.7; O2SAT 96
--- NOTE | 2017-04-29 12:59 | Discharge Summary ---
Discharge Summary Date of Service Apr 29, 2017. 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 Eating well. More energy, no longer feels dehydrated. Discussed plan for discharge with Lantus in the evening and Metformin, answered all questions. Review of Systems: Constitutional: No fever, No chills, No sweats, No weight loss, No weakness , No fatigue, No problem reported Eyes: No worsening of vision, No eye pain, No redness, No discharge, No diplopia, No problem reported ENT: No hearing loss, No unusual epistaxis, No nasal symptoms, No sore throat, No tinnitus, No dental problems, No trouble swallowing, No problem reported Respiratory: No cough, No sputum, No wheezing, No shortness of breath, No dyspnea on exertion, No dyspnea at rest, No hemoptysis, No problem reported Cardiovascular: No chest pain, No orthopnea, No PND, No edema, No claudication, No palpitations, No problem reported Abdomen: No pain, No nausea, No vomiting, No diarrhea, No constipation, No GI bleeding, No problem reported Musculoskeletal: No joint pain, No muscle pain, No swelling, No calf pain, No problem reported Genitourinary - Male: No hematuria, No dysuria, No urinary frequency, No urinary urgency Neurologic: No memory loss, No paralysis, No weakness, No numbness/tingling , No vertigo, No balance problems, No problem reported Psychiatric: No depression symptoms, No anhedonism, No anxiety, No insomnia , No substance abuse, No problem reported Endocrine: No fatigue, No excessive thirst, No excessive urination, No problem reported Hematologic / Lymphatic: No abnormal bleeding/bruising, No clotting problems , No swollen lymph nodes, No night sweats, No problem reported Integumentary: No rash, No itch, No new/changing skin lesions, No color change, No bleeding, No problem reported Physical Exam: General Appearance: WD/WN, no apparent distress Eyes: normal inspection, EOMI, sclerae normal ENT: normal ENT inspection, hearing grossly normal, pharynx normal Neck: supple, no adenopathy, no JVD, trachea midline Respiratory/Chest: chest non-tender, lungs clear, normal breath sounds, no respiratory distress, no accessory muscle use Cardiovascular: regular rate, rhythm, no edema, no gallop, no JVD, no murmur , normal peripheral pulses Abdomen / GI: normal bowel sounds, non tender, soft, no organomegaly Extremities: normal inspection, no calf tenderness, normal capillary refill , no pedal edema, normal range of motion, pelvis stable 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, no motor/sensory deficits , alert, normal mood/affect, normal reflexes, oriented x 3 Skin: normal color, warm/dry, no rash Hospital Course 27 yo male with new onset diabetes, mild DKA, hyperglycemia - New onset diabetes, hyperglycemia, mild DKA DKA resolved completely transitioned off of insulin drip, on Lantus 60 units BID with Novolog coverage initially insulin requirements slowly decreasing, today on 30 units BID electrolytes stable, Cr normal supervisor hide house visited with patient, he understands basics of diabetes diet nurse education and instructing patient on administering insulin by himself plan for discharge will be Lantus 35 units every evening, Metformin 500mg daily every morning will check sugars three times a day for the next week, take values to follow up appointment will follow up with [facility] this [facility], will try to get him appointment with endocrinology soon - Blurry vision: PERRLA, visual acuity intact vision back to normal recommend following up with eye doctor if vision doesn't improve with glucose control Total Time Spent: Greater than 30 minutes This includes examination of the patient, discharge planning, medication reconciliation, and communication with other providers. Discharge Instructions Please refer to the electronic Patient Visit Report (Discharge Instructions) for additional information. Follow-Up [facility] this week Endocrinology in one month Additional Copies To [facility]
== END 2017-04-29 14:25 | disposition home or self-care (01) ==
LOC: C.EDB 15:06 → C.2E 18:34 → ENRESERV 18:49 → C.MS2W 04-28 15:53
PROVIDERS: ADMIT Internal Medicine; ATTEND Internal Medicine
DX: E13.10 Other specified diabetes mellitus with ketoacidosis without coma (principal); E11.65 Type 2 diabetes mellitus with hyperglycemia; E87.6 Hypokalemia; E86.0 Dehydration